=== PATIENT | male | born 1970 | race Caucasian/White ===

== ENCOUNTER 2025-04-25 14:19 | Inpatient (IN) ==
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
[2025-04-25] MEDS: SODIUM CHLORIDE 0.9% 500 ML IV SCH (14:59)
[2025-04-25] MEDS: PANTOprazole 40 MG/10 ML SYR IV ONE ×2 (15:00→15:47)
[2025-04-25] MEDS: FAMOTIDINE 20MG IV PUSH 20 MG/5 ML SYR IV STA (15:04)
[2025-04-25 15:08] LABS: Basophils # (auto) 0.08 K/uL (0.00-0.20); Basophils % (auto) 1.4 %; Eosinophils % (auto) 5.1 %; Hemoglobin 7.1 g/dl (14.0-18.0); Immature Granulocytes # (auto) 0.02 K/uL (0.01-0.20); Immature Granulocytes % (auto) 0.3 %; Lymphocytes # (auto) 1.87 K/uL (1.20-3.40); Lymphocytes % (auto) 31.7 %; Mean Corpuscular Hgb Conc 32.3 g/dL (32.0-36.0); Mean Corpuscular Volume 80.6 fL (80.0-100.0); Mean Platelet Volume 10.4 fL (9.4-12.4); Monocytes # (auto) 0.39 K/uL (0.11-0.59); Monocytes % (auto) 6.6 %; Neutrophils # (auto) 3.24 K/uL (1.40-6.50); Neutrophils % (auto) 54.9 %; Platelet Count 329 K/uL (130-400); RDW Coefficient of Variation 14.8 % (11.5-14.5); RDW Standard Deviation 42.3 fL (36.4-46.3); Red Blood Count 2.73 M/uL (4.70-6.10)
[2025-04-25] MEDS ORDERED: SODIUM CHLORIDE 0.9% 100 ML IV PRN (15:21)
[2025-04-25 15:24] LABS: Albumin Globulin Ratio 2.1 (0.9-2); Albumin Level 3.4 gm/dl (3.4-5.0); BUN Creatinine Ratio 23.7 (10-20); Bilirubin,Total 0.1 mg/dl (0.2-1.0); Calcium 7.9 mg/dl (8.6-10.3); Globulin 1.6 gm/dl (2.5-4.0); Magnesium 1.8 mg/dl (1.7-2.4); Potassium 3.7 mmol/L (3.5-5.1)
--- NOTE | 2025-04-25 15:34 | XRay Report ---
XR chest 1V portable CLINICAL HISTORY: gi bleed COMPARISON STUDY: 07/06/2013 FINDINGS: Heart size and pulmonary vasculature are normal. No effusion, consolidation, or pneumothora x. Stable old left clavicle fracture. IMPRESSION: No acute findings. ACT 112: Negative or not required by law. Electronically signed by: Stiven Patel M.D. 04/25/2025 3:33 PM
[2025-04-25] MEDS: OPTIRAY 320 100ml IV ONE (15:35)
[2025-04-25 15:40] LABS: RBC Morphology Unremarkable
--- NOTE | 2025-04-25 15:53 | CT Scan Report ---
ABDOMEN AND PELVIS CT WITH IV CONTRAST CT DOSE: 568.91 mGy.cm HISTORY: gi bleed TECHNIQUE: Multiaxial CT images of the abdomen and pelvis were performed following the IV administrat ion of 90 cc of Optiray, A dose lowering technique was utilized adhering to the principles of ALARA. COMPARISON STUDY: None FINDINGS: ABDOMEN: Gallbladder is contracted, grossly unremarkable. Liver, spleen, pancreas, and adrenal glands are unremarkable. There are a few tiny calculi at the left kidney. There is no hydronephrosis or ure teral calculi bilaterally. There are a few tiny cysts at the right kidney. There is no abdominal aort ic aneurysm. There are is minimal atherosclerotic calcification. Pelvis: Prostate is enlarged. Urinary bladder is mildly distended with wall thickening suggesting chr onic bladder outlet obstruction. There is moderate retained stool. No bowel inflammation or obstructi on seen. No free fluid, free air, or abscess. No significant colonic diverticulosis or acute divertic ulitis seen. Osseous structures: No acute osseous findings. IMPRESSION: No acute findings. ACT 112: Negative or not required by law. The above report was generated using voice recognition software. It may contain grammatical, syntax o r spelling errors. Electronically signed by: Stiven Patel M.D. 04/25/2025 3:52 PM
[2025-04-25 15:54] LABS: Partial Thromboplastin Ratio 0.9; Partial Thromboplastin Time 23 Seconds (21-31); Prothrombin Time 10.7 Seconds (9.0-12.0)
[2025-04-25] MEDS: CALCIUM GLUCONATE 1,000 MG/60 ML BAG IV STA (17:00)
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
[2025-04-25] MEDS ORDERED: ONDANSETRON INJ 2 MG/ML 2 ML VIAL IV PRN (18:31)
[2025-04-25] MEDS: PANTOprazole 40 MG in DEXTROSE 5% MINI-B 100 ML IV SCH (19:38)
[2025-04-25] MEDS: SODIUM CHLORIDE 0.9% 1,000 ML IV SCH (19:40)
[2025-04-25 23:51] LABS: Hematocrit (blood only) 22.1 % (42.0-52.0); Hemoglobin 7.4 g/dl (14.0-18.0)
[2025-04-26 06:22] LABS: Hematocrit (blood only) 22.8 % (42.0-52.0); Hemoglobin 7.5 g/dl (14.0-18.0); Mean Corpuscular Hemoglobin 26.6 pg (25.0-34.0); Mean Corpuscular Hgb Conc 32.9 g/dL (32.0-36.0); Mean Corpuscular Volume 80.9 fL (80.0-100.0); Mean Platelet Volume 10.6 fL (9.4-12.4); Platelet Count 310 K/uL (130-400); RDW Coefficient of Variation 14.7 % (11.5-14.5); RDW Standard Deviation 42.7 fL (36.4-46.3); Red Blood Count 2.82 M/uL (4.70-6.10); White Blood Count 6.57 K/ul (4.8-10.8)
[2025-04-26 06:55] LABS: Calcium 7.7 mg/dl (8.6-10.3); Creatinine Clr Calc Pharmacy 80.1 ml/min; Potassium 3.7 mmol/L (3.5-5.1)
[2025-04-26] MEDS ORDERED: SODIUM CHLORIDE 0.9% 100 ML IV PRN (07:38)
[2025-04-26] MEDS: FUROSEMIDE 40 MG/4 ML VIAL IV ONE (09:06)
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
[2025-04-26] MEDS: ACETAMINOPHEN 325 MG TAB PO PRN (10:58)
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
--- NOTE | 2025-04-26 13:22 | Hospitalist Progress Note ---
Date of Service April 26, 2025 Assessment & Plan (1) Acute blood loss anemia: (2) Upper gastrointestinal bleed: (3) Hypocalcemia: Plan Patient 55-year-old gentleman presented with symptomatic blood loss anemia and black stools. Patient received 1 unit of packed red blood cells. Hemoglobin did not improve significantly. No evidence of active hemorrhage, however due to fact the patient was significantly symptomatic we will transfuse an additional 1 unit of packed red blood cells today in anticipation for GI procedure Reviewed GI consultation, plans for EGD later today Continue PPI IV Replace calcium Monitor laboratory studies Admission and Anticipated Discharge Date Admission Date: April 25, 2025 Subjective Patient still feeling a bit weak. A little better after transfusion. Has not had any more black or bloody stool Physical Exam Physical Exam: Constitutional: Alert, somewhat pale HEENT: Mucous membranes moist. Lungs: Decreased breath sounds CV: S1-S2, regular Abdomen: Soft, nontender, nondistended Extremities: No significant edema Neuro: No focal deficits Psych: Cooperative, normal mood Results & Data Results & Data Vital Signs (Past 12 Hours) Vital Signs Temp Pulse Pulse Pulse Resp BP BP 04/26/25 12:59 36.7 C 71 16 113/68 04/26/25 11:47 36.7 C 65 18 113/61 04/26/25 10:48 36.6 C 65 18 118/75 04/26/25 09:48 36.7 C 67 18 126/76 04/26/25 09:18 36.6 C 69 18 116/75 04/26/25 09:03 36.6 C 67 16 120/72 04/26/25 08:42 36.7 C 66 16 114/76 04/26/25 08:14 36.7 C 72 18 04/26/25 02:44 36.4 C L 73 18 BP Pulse Ox O2 Del Method 04/26/25 12:59 100 Room Air 04/26/25 11:47 98 04/26/25 10:48 99 04/26/25 09:48 99 04/26/25 09:18 99 04/26/25 09:03 99 04/26/25 08:42 98 04/26/25 08:14 117/71 94 Room Air 04/26/25 02:44 122/73 100 Room Air Diagnostic Findings Reviewed imaging, laboratory and diagnostic studies. Pertinent findings as below. Hemoglobin 7.5 This is not significantly increased considering he had a blood transfusion of 1 unit Electrolytes stable Creatinine 0.94
--- NOTE | 2025-04-26 14:16 | Anesthesiology Progress Note ---
Date of Service April 26, 2025 Anesthesia Post Procedure Vital Signs Vital Signs: Temp Pulse Pulse Pulse Resp BP BP 04/26/25 12:59 36.7 C 71 16 113/68 04/26/25 11:47 36.7 C 65 18 113/61 04/26/25 10:48 36.6 C 65 18 118/75 04/26/25 09:48 36.7 C 67 18 126/76 04/26/25 09:18 36.6 C 69 18 116/75 04/26/25 09:03 36.6 C 67 16 120/72 04/26/25 08:42 36.7 C 66 16 114/76 04/26/25 08:14 36.7 C 72 18 04/26/25 02:44 36.4 C L 73 18 04/25/25 22:50 36.9 C 82 18 04/25/25 20:08 36.4 C L 68 18 04/25/25 19:14 75 04/25/25 19:12 37.0 C 82 18 126/72 04/25/25 18:43 37.0 C 76 20 04/25/25 18:31 04/25/25 17:56 36.7 C 77 20 109/75 04/25/25 17:50 36.9 C 82 20 109/75 04/25/25 17:20 37.2 C 76 20 110/72 04/25/25 17:05 36.7 C 78 20 115/74 04/25/25 17:05 36.7 C 78 18 115/74 04/25/25 16:50 36.8 C 78 18 115/77 04/25/25 16:19 77 18 04/25/25 14:49 88 04/25/25 14:43 82 18 04/25/25 14:23 36.7 C 102 H 20 115/70 04/25/25 14:19 86 16 BP Pulse Ox Pulse Ox O2 Del Method O2 Del Method 04/26/25 12:59 100 Room Air 04/26/25 11:47 98 04/26/25 10:48 99 04/26/25 09:48 99 04/26/25 09:18 99 04/26/25 09:03 99 04/26/25 08:42 98 04/26/25 08:14 117/71 94 Room Air 04/26/25 02:44 122/73 100 Room Air 04/25/25 22:50 111/67 100 Room Air 04/25/25 20:08 99/63 L 100 Room Air 04/25/25 19:14 04/25/25 19:12 98 04/25/25 18:43 128/70 97 Room Air 04/25/25 18:31 97 Room Air 04/25/25 17:56 100 Room Air 04/25/25 17:50 100 04/25/25 17:20 100 04/25/25 17:05 100 04/25/25 17:05 100 04/25/25 16:50 99 04/25/25 16:19 115/77 100 Room Air 04/25/25 14:49 04/25/25 14:43 100 Room Air 04/25/25 14:23 100 Room Air 04/25/25 14:19 118/72 99 Room Air Transfer of Care Handoff Completed per policy Notes Mental Status: alert / awake / arousable and participated in evaluation Patient Amnestic to Procedure: Yes Nausea / Vomiting: adequately controlled Pain: adequately controlled Airway Patency, RR, SpO2: stable & adequate BP & HR: stable & adequate Hydration State: stable & adequate Anesthetic Complications: no major complications apparent and Pt Satisfied with anesthetic care
--- NOTE | 2025-04-26 14:20 | GI REPORT ---
[facility] Patient: CASSIA BAY : 1970 Sex at : Male Age: 55 Years Procedure: Upper GI endoscopy Date: 04/26/2025 Attending Physician: Alejandro Sagastume MD Referring MD: Eusebio Chavez DO Indications: - Melena - Suspected upper gastrointestinal bleeding Medications: - See the Anesthesia note for documentation of the administered medications Complications: - No immediate complications. Estimated Blood Loss: - Estimated blood loss was minimal. Procedure: - ASA Grade Assessment: III - A patient with severe systemic disease. - The heart rate, respiratory rate, oxygen saturations, blood pressure, adequacy of pulmonary ventilation, and response to care were monitored throughout the procedure. - The egd scope was introduced through the mouth and advanced to the third part of the duodenum. - The upper GI endoscopy was accomplished without difficulty. - The patient tolerated the procedure well. Findings: - Three non-bleeding cratered duodenal ulcers with a clean ulcer base (Himanshu Class III) were found in the duodenal bulb. - Diffuse mildly erythematous mucosa without bleeding was found in the gastric body and in the gastric antrum. This was biopsied with a cold forceps for histology. - LA Grade C (one or more mucosal breaks continuous between tops of 2 or more mucosal folds, less than 75% circumference) esophagitis with no bleeding was found in the distal esophagus. - The cardia and gastric fundus were normal on retroflexion. Impression: - Non-bleeding duodenal ulcers with a clean ulcer base (Himanshu Class III). - Erythematous mucosa in the gastric body and gastric antrum. Biopsied. - LA Grade C reflux esophagitis with no bleeding. Rule out Dinh's esophagus. Recommendation: - Await pathology results. - Patient has a contact number available for emergencies. The signs and symptoms of potential delayed complications were discussed with the patient. Return to normal activities tomorrow. Written discharge instructions were provided to the patient. - PPI twice daily for two weeks, then daily, indefinitely - No aspirin, ibuprofen, naproxen, or other non-steroidal anti-inflammatory drugs. - Soft diet today, then advance as tolerated to resume regular diet. - Perform a colonoscopy at appointment to be scheduled. - If hemoglobin is stable, patient may be discharged from a GI perspective. Recall GI service as needed. Procedure Code(s): - 88660, Esophagogastroduodenoscopy, flexible, transoral; with biopsy, single or multiple Diagnosis Code(s): - K92.1, Melena (includes Hematochezia) - K26.9, Duodenal ulcer, unspecified as acute or chronic, without hemorrhage or perforation - K31.89, Other diseases of stomach and duodenum - K21.00, Gastro-esophageal reflux disease with esophagitis, without bleeding CPT(R) - 2023 copyright [employer]. All Rights Reserved. The CPT codes, CCI edits and ICD codes generated are intended as suggestions and were generated based on input data. These codes are preliminary and upon remote coders review may be revised to meet current compliance and payer requirements. The provider is responsible for the final determination of appropriate codes, and modifiers. Alejandro Sagastume MD This document has been electronically signed. Note Initiated:04/26/2025 Note Completed:04/26/2025 2:19 PM \\[id number]
[2025-04-26] MEDS: LIDOCAINE 2% 2 ML VIAL/AMP(20MG/ML) INFIL ONE (14:51)
[2025-04-26] MEDS: PROPOFOL IV EMULSION 10 MG/ML 20 ML VIAL IV ONE (14:51)
[2025-04-26] MEDS: CALCIUM GLUCONATE 1,000 MG/60 ML BAG IV SCH (15:05)
[2025-04-26 15:16] LABS: Hemoglobin 9.5 g/dl (14.0-18.0)
--- NOTE | 2025-04-26 16:31 | Electrocardiogram Report ---
Test Reason : Blood Pressure : */* mmHG Vent. Rate : 78 BPM Atrial Rate : 78 BPM P-R Int : 132 ms QRS Dur : 80 ms QT Int : 376 ms P-R-T Axes : 43 -10 30 degrees QTcB Int : 428 ms Normal sinus rhythm Normal ECG When compared with ECG of 04-Jul-2013 11:15, No significant change Confirmed by Jaime Bean ([id number]) on 04/26/2025 4:31:07 PM Referred By: REFERRED SELF Confirmed By: Jaime Bean
[2025-04-26] MEDS: PANTOprazole 40 MG TAB PO SCH (20:04)
[2025-04-26 21:34] VITALS: PULSE 61; TEMP 97.7; O2SAT 100
[2025-04-27 07:08] LABS: Hematocrit (blood only) 28.3 % (42.0-52.0); Hemoglobin 9.5 g/dl (14.0-18.0); Mean Corpuscular Hemoglobin 27.3 pg (25.0-34.0); Mean Corpuscular Hgb Conc 33.6 g/dL (32.0-36.0); Mean Corpuscular Volume 81.3 fL (80.0-100.0); Mean Platelet Volume 10.6 fL (9.4-12.4); Platelet Count 350 K/uL (130-400); RDW Coefficient of Variation 14.9 % (11.5-14.5); RDW Standard Deviation 43.5 fL (36.4-46.3); Red Blood Count 3.48 M/uL (4.70-6.10); White Blood Count 6.98 K/ul (4.8-10.8)
[2025-04-27 07:28] VITALS: BP 121/70; RESP 16
[2025-04-27 07:29] LABS: BUN Creatinine Ratio 15.1 (10-20); Calcium 8.3 mg/dl (8.6-10.3); Magnesium 1.9 mg/dl (1.7-2.4); Phosphorus 4.1 mg/dl (2.5-4.9); Potassium 3.9 mmol/L (3.5-5.1)
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
== END 2025-04-27 09:23 | disposition home or self-care (01) | DRG 378 ==
LOC: ED 14:19 → 4W 15:59 → SUATTDRO 15:59 → 4W 17:56 → 3W 04-26 21:14